=== PATIENT | female | born 1985 | race African-American/Black ===

== ENCOUNTER 2016-08-29 12:19 | Emergency (ER) | payer OTHER ==
--- NOTE | ~2016-08-29 | CT4 ---
[facility] A Service of [facility] RADIOLOGY TEXT RESULTS PATIENT: KRISTIN EID LOCATION: [facility] : 81 UNIT #: [id number] AGE: [address]: Garrett Gordon MD SEX: F ORDER DR: [id number] [facility] [address] [place], [place] [address] [id number] E MR#: [id number] #: [id number] NAME: KRISTIN EID : [id number] SEX: F STUDY DATE/TIME: 08/29/2016 12:36 UNIT: [facility] ROOM: STUDY DESCRIPTION: CT Abd and Pelv Wo Cont Attending Physician: Garrett Gordon M.D. Ordering Physician: Garrett Gordon M.D. Primary Care Physician: Michael Crisostomo M.D. MEDICAL IMAGING REPORT This report is preliminary unless electronic signature is present EXAM CT of the abdomen and pelvis without contrast media dated 08/29/2016. COMPARISON STUDIES None HISTORY Right lower quadrant pain for 2 days. Difficulty with urination. Nausea and diarrhea. TECHNIQUE Transaxial imaging of the abdomen and pelvis was performed without contrast and compared to a prior contrast-enhanced scan of 08/20/2015. This CT exam was performed with one or more of the following radiation dose reduction techniques: automatic exposure control, adjustment of mA and/or kV according to patient size, and iterative reconstruction. FINDINGS Scans through the lung bases appear normal. Scans through the liver parenchyma again show multiple lesions within the liver. The largest of these lesions is in the more cephalad aspect of the liver and on primary imaging of July 2015, these appear represent multiple benign hemangiomas. The largest of these measure up to 3 cm in diameter. There are no additional lesions identified on the scan. Gallbladder is normal. Spleen is normal. Adrenal glands and pancreas are normal. Both the right and left kidney have a normal appearance. No dilated or thickened loops of bowel are identified. No pelvic masses or fluid collections are seen. Appendix is air-filled and appears normal. Uterus is midline. There are no adnexal masses or fluid collections. CONCLUSION 1. Multiple low-density lesions within the liver which on prior CT of [facility] A Service of [facility] RADIOLOGY TEXT RESULTS PATIENT: KRISTIN EID LOCATION: [facility] : 81 UNIT #: [id number] AGE: [address]: Garrett Gordon MD SEX: F ORDER DR: July 2015 almost certainly represent benign hemangiomas. These are stable in size and there are no new lesions appreciated. 2. No acute findings in the abdomen or pelvis. Dictated by... David Briones M.D. THIS IS AN ELECTRONICALLY VERIFIED REPORT David Briones M.D. at 08/30/2016 5:02 PM GLADYS/shiloh TD: 08/29/2016 14:13 JOB #: [id number] MEDICAL IMAGING REPORT Page 1 of 1 COPY
[2016-08-29 12:18] LABS: URINE SOURCE CLEAN CATCH
[~2016-08-29 12:19] MED LIST: BACITRACIN30 GM TOP; BACTRIM DS TABL1 TA1 PO; BACTRIM DS TABL1 TA2 PO; DEPO-PROVER150 MG/ML INJ; DICYCLOMINE HCL20 MG PO; FLEXERIL PO; IBUPROFEN PO; IBUPROFEN800 MG PO; KEFLEX PO; MOTRIN600 MG PO; NO MEDICATIONS; PHENERGAN PO; PHENERGAN W/CO120 ML PO; PHENERGAN25 MG PO; TYLENOL #3 PO; TYLOX1 CAP 5/50 DOB; ULTRAM PO; VICODIN 5/500 T1 TAB PO; ZITHROMAX PO; ZOFRAN ODT4 MG PO
[2016-08-29 12:22] LABS: BASOPHIL# 0.1 X10e3 (0-0.3); BASOPHIL% 0.7 % (0-2.5); EOSINOPHIL# 0.2 X10e3 (0-0.7); EOSINOPHIL% 1.6 % (0.0-7.0); HEMATOCRIT 42.4 % (35.0-45.0); HEMOGLOBIN 13.7 gm/dL (12.0-16.0); LYMPHOCYTE# 1.8 X10e3 (1.0-3.5); LYMPHOCYTE% 15.8 % (17.0-45.0); MEAN CORPUSCULAR HEMOGLOBIN 27.5 PG (28-34); MEAN CORPUSCULAR HGB CONC 32.4 g/dL (30-36); MEAN PLATELET VOLUME 8.9 FL (6.5-11.5); MONOCYTE# 0.8 X10e3 (0-1.0); MONOCYTE% 7.4 % (3.0-12.0); NEUTROPHIL# 8.4 X10e3 (1.5-7.1); NEUTROPHIL% 74.5 % (40-75); PLATELET COUNT 255 X10e3 (140-420); RED BLOOD COUNT 4.99 X10e (3.90-5.30); RED CELL DISTRIBUTION WIDTH 12.6 % (11.0-15.5); WHITE BLOOD COUNT 11.3 X10e3 (4.0-10.5)
[2016-08-29 12:23] LABS: DIFF IND NO; URINE APPEARANCE CLOUDY; URINE BILIRUBIN NEG (NEG); URINE BLOOD 2+ (NEG); URINE COLOR YELLOW; URINE GLUCOSE NEG (NEG); URINE KETONE NEG (NEG); URINE LEUKOCYTE ESTERASE 3+ (NEG); URINE NITRATE NEG (NEG); URINE PH 5.5 (5-8); URINE PROTEIN NEG (NEG); URINE SPECIFIC GRAVITY 1.019 (1.003-1.035); URINE UROBILINOGEN 0.2 MG/DL (NEG)
[2016-08-29 12:26] LABS: CULTURE INDICATED? YES; U HYALINE CASTS AUWI 0-2 /[LPF]; URINE BACTERIA AUWI 2+ (NEGATIVE); URINE SQUAMOUS EPITHELIAL CELL FEW /[HPF]; UWBCS1 AUWI 50-100 (0-5)
[2016-08-29 13:05] LABS: ALBUMIN SERUM 3.2 g/dL (3.5-5.0); BILIRUBIN, DIRECT 0.1 mg/dL (0.0-0.2); BILIRUBIN,INDIRECT 0.4 mg/dL (0.0-0.9); BILIRUBIN,TOTAL 0.5 mg/dL (0.2-2.0); CALCIUM SERUM 7.8 mg/dL (8.4-10.2); GLOM FILT RATE Estimated 85.8 mL/min (>60); POTASSIUM 3.7 mmol/L (3.5-5.1); PROTEIN TOTAL SERUM 5.9 g/dL (6.0-8.3)
== END 2016-08-29 13:55 | disposition home or self-care (01) ==
LOC: CED 12:19
PROVIDERS: Emergency Medicine
DX: N39.0 Urinary tract infection, site not specified (principal); K76.9 Liver disease, unspecified; F17.200 Nicotine dependence, unspecified, uncomplicated; Z79.899 Other long term (current) drug therapy
CPT/HCPCS: 36415; 74176; 80048; 80076; 81003; 82150; 83690; 84703; 85025; 87086; 96361; 96374; 96375; 99284; J1170; J2405